=== PATIENT | male | born 1985 | race Caucasian/White ===

== ENCOUNTER 2021-02-11 08:42 | Emergency (ER) | payer SELFPAY ==
[2021-02-12 12:26] LABS: SARS-CoV-2 PCR by NAA Not Detected (NotDetected)
== END 2021-02-11 09:57 | disposition home or self-care (01) ==
LOC: MADERS 08:42
DX: Z20.822 Contact with and (suspected) exposure to COVID-19 (principal); F17.210 Nicotine dependence, cigarettes, uncomplicated
CPT/HCPCS: 99283; U0003; U0005

== ENCOUNTER 2022-07-08 16:57 | Emergency (ER) | payer OTHER, SELFPAY ==
[2022-07-08] MEDS ORDERED: Amoxicillin/Potassium Clav 875 MG TAB ONE (18:22)
== END 2022-07-08 18:47 | disposition home or self-care (01) ==
LOC: MADERS 16:57
DX: J01.90 Acute sinusitis, unspecified (principal); F17.210 Nicotine dependence, cigarettes, uncomplicated; Z20.822 Contact with and (suspected) exposure to COVID-19
CPT/HCPCS: 71046; 87804; U0003; U0005